=== PATIENT | female | born 1980 | race Caucasian/White ===

== ENCOUNTER → 2018-03-27 21:45 | Observation (INO) ==
--- NOTE | 2018-03-27 19:29 | OB/GYN Progress Note ---
Addendum entered and electronically signed by Yesica Aviles 03/27/18 21:39: Original Note: Date of Encounter: 03/27/18 Time of Encounter: 19:18 - Assessment and Plan (1) 32 weeks gestation of Current Visit: Yes Status: Acute 37 y/o at 32w2d gestation course complicated by AMA for which she follows with MFM for weekly U/S Abnormal cell free DNA, repeat cell free DNA was normal and CVS normal Dr. Guevara for routine care (2) Decreased movement during Current Visit: Yes Status: Acute Complaint of several hours of decreased movement Admits to feeling tired and run down since UTI and wendy albicans infections Upon presentation to L&D, began to feel normal movement FHR 125 bpm, reactive Two variable declerations noted. Per Dr. Alvarenga we recommended pt stay overnight for observation of FHR. Pt states her 14 year-old is at home so she needs to go home. Pt educated on risks. Pt signing out AMA at this time. Qualifiers: Fetus number: single or unspecified fetus Trimester: third trimester Qual ified Code(s): O36.8130 - Decreased movements, third trimester, not applicable or unspecified (3) NST (non-stress test) reactive Current Visit: Yes Status: Acute FHR 125 Moderate variability +15x15 accelerations One unprovoked deceleration noted Continue to monitor until morning as she is high risk due to AMA Subjective - Subjective Principal diagnosis: Decreased movement Interval history: Jenifer Zaragoza is a 37 y/o female presenting today for complaint of decreased movement. She is , 32w2d gestation and follows with MFM for advanced maternal age at [facility] and Dr. Guevara for routine care. course complicated by advanced maternal age and abnormal cell free DNA, however, repeat cell free DNA, CVS and visits with MFM have all been normal. She states that she has had decreased movement since this morning, however she states that since presenting to labor and delivery she began to feel normal movement. She is currently being treated for UTI with macrobid and yeast infection with flagyl and diflucan. She admits to feeling more run down and tired since starting the macrobid, flagyl and diflucan. She denies contractions, vaginal bleeding, nausea, vomiting, fever, chills, chest pain, shortness of breath, headache, dizziness, edema. Antepartum ROS: no loss of fluid, no vaginal bleeding, no contractions Objective - Exam FHR: auscultation normal, category 1 FHR comments: FHR 125 bpm Auscultation: bilateral: normal Abdomen: Present: normal appearance, soft, gravid. Absent: tenderness Uterus: Present: normal, firm
[2018-03-27 22:21] LABS: Bilirubin,Urine Negative (Negative); Blood,Urine Negative (Negative); Clarity,Urine Cloudy (Clear); Color,Urine Yellow (Yellow); Glucose,Urine (UA) Normal (Normal); Ketones,Urine Trace mg/dL (Negative); Leukocyte Esterase,Urine Negative (Negative); Nitrite,Urine Negative (Negative); PH,Urine 6.5 pH Units (5.0-8.0); Protein,Urine 30 mg/dL (Neg-Trace); Specific Gravity,Urine 1.021 (1.010-1.025); Urobilinogen,Urine Normal (Normal)
[2018-03-27 22:24] LABS: Bacteria,Urine Moderate per hpf (None-Few); Hyaline Casts,Urine Few per lpf (None-Few); Squamous Epithelial Cell,Urine Many per lpf (None-Few)
[2018-03-27 22:33] LABS: Calcium Oxalate Crystals,Urine Present; RBC,Urine 0-3 per hpf (0-3)
[2018-03-27 22:41] LABS: Amphetamine Screen,Urine Negative ng/mL (Cutoff=1000); Barbiturate Screen,Urine Negative ng/mL (Cutoff=200); Benzodiazepines Screen,Urine Negative ng/mL (Cutoff=200); Cannabinoid Screen,Urine Negative ng/mL (Cutoff = 50); Cocaine Screen,Urine Negative ng/mL (Cutoff= 300); Opiate Screen,Urine Negative ng/mL (Cutoff=300); Phencyclidine Screen,Urine Negative ng/mL (Cutoff=25)
== END | disposition left against medical advice (07) ==
LOC: 1NENULAB
PROVIDERS: ADMIT Registered Nurse; ATTEND Registered Nurse